=== PATIENT | female | born 1990 | race Caucasian/White ===

== ENCOUNTER 2019-10-13 07:20 | Day surgery (SDC) | payer OTHER ==
[2019-10-13] MEDS ORDERED: DOXYCYCLINE HY100 MG PO (12:32)
== END 2019-10-13 16:50 | disposition home or self-care (01) ==
LOC: CIR.AMB 07:20
PROVIDERS: ATTEND Obstetrics & Gynecology
DX: O02.1 Missed abortion (principal); Z20.828 Contact with and (suspected) exposure to other viral communicable diseases

== ENCOUNTER 2020-10-29 09:18 | Outpatient (CLI) | payer OTHER ==
[~2020-10-29 09:18] MED LIST: DOXYCYCLINE HY100 MG PO
== END 2020-10-29 10:20 | disposition home or self-care (01) ==
LOC: PRENATAL 09:18
PROVIDERS: ATTEND Obstetrics & Gynecology Maternal & Fetal Medicine
DX: O35.0XX1 Maternal care for (suspected) central nervous system malformation in fetus, fetus 1 (principal); O35.3XX1 Maternal care for (suspected) damage to fetus from viral disease in mother, fetus 1; O98.513 Other viral diseases complicating pregnancy, third trimester; O24.410 Gestational diabetes mellitus in pregnancy, diet controlled; Z36.89 Encounter for other specified antenatal screening; Z3A.29 29 weeks gestation of pregnancy

== ENCOUNTER 2020-12-27 05:40 | Inpatient (IN) | payer OTHER ==
[~2020-12-27] VITALS: Ht 160 cm; Wt 83.0 kg
[2020-12-30] MEDS ORDERED: ACETAMINOPHEN-1 EAC2 PO (10:46)
== END 2020-12-30 13:47 | disposition home or self-care (01) | DRG 788 ==
LOC: OB/GYN 05:40 → LDR 05:40 → O/R 12-28 08:40 → OB/GYN 12-28 10:16
PROVIDERS: ADMIT Obstetrics & Gynecology; ATTEND Obstetrics & Gynecology
PROC: 4A1HXFZ Monitoring of Products of Conception, Cardiac Rhythm, External Approach (ICD-10-PCS; 2020-12-27)
PROC: 10D00Z1 Extraction of Products of Conception, Low, Open Approach (ICD-10-PCS; principal; 2020-12-27 16:00)
DX: O82 Encounter for cesarean delivery without indication (principal); O62.0 Primary inadequate contractions; Z37.0 Single live birth; Z3A.37 37 weeks gestation of pregnancy; Z20.822 Contact with and (suspected) exposure to COVID-19